=== PATIENT | female | born 2000 | race Caucasian/White ===

== ENCOUNTER 2021-04-04 19:16 | Emergency (ER) | payer MEDICAID ==
[~2021-04-04] VITALS: Ht 157.5 cm; Wt 68.0 kg
[2021-04-04 19:21] VITALS: BP 129/68
[2021-04-04] MEDS ORDERED: CLOT15CR27 TP (20:03)
[2021-04-04] MEDS ORDERED: TRIA15CR2 TP (20:03)
== END 2021-04-04 20:09 | disposition home or self-care (01) ==
LOC: ER 19:23
DX: L30.9 Dermatitis, unspecified (principal); B35.6 Tinea cruris